=== PATIENT | male | born 1995 | race Caucasian/White ===

== ENCOUNTER 2020-06-24 13:02 | Emergency (ER) | payer SELFPAY ==
[2020-06-24] MEDS ORDERED: MEDROL DOSEPAK4 MG PO (15:04)
[2020-06-24 15:16] VITALS: BP 168/89
== END 2020-06-24 15:10 | disposition home or self-care (01) ==
LOC: ED 13:02
DX: M10.9 Gout, unspecified (principal); F17.220 Nicotine dependence, chewing tobacco, uncomplicated

== ENCOUNTER 2020-07-13 15:33 | Emergency (ER) | payer SELFPAY ==
[~2020-07-13 15:33] MED LIST: MEDROL DOSEPAK4 MG PO
[2020-07-13] MEDS ORDERED: IBU-200200 M1 PO (15:48)
[2020-07-13 16:49] LABS: BASO # 0.1 (0.02-0.10); EOS # 0.2 (0.04-0.40); EOS % 1.4 % (0.0-4.0); HEMATOCRIT 46.6 % (42.0-52.0); HEMOGLOBIN 15.4 g/dL (13.5-18.0); LYMPH# 2.7 (1.50-4.00); MEAN CELL VOLUME 90 fl (78-100); MEAN CORPUSCULAR HEMOGLOBIN 30 pg (27-31); MEAN CORPUSCULAR HGB CONC 33 g/dL (33-37); MEAN PLATELET VOLUME 8.3 fl (7.4-10.4); PLATELET COUNT 322 K/mm3 (130-400); WHITE BLOOD COUNT 13.9 K/mm3 (4.8-10.8)
[2020-07-13 17:01] LABS: MONO # 1.6 (0.20-0.80); NEU # 9.2 (1.40-6.50)
[2020-07-13 17:07] LABS: POTASSIUM 4.8 mmol/L (3.5-5.1)
[2020-07-13 17:08] LABS: CALCIUM 9.4 mg/dL (8.3-10.5)
[2020-07-13] MEDS ORDERED: PREDNISONE10 MG PO (17:41)
[2020-07-13 18:09] VITALS: BP 117/88
== END 2020-07-13 18:00 | disposition home or self-care (01) ==
LOC: ED 15:33
PROVIDERS: Nurse Practitioner Family
DX: M25.572 Pain in left ankle and joints of left foot (principal); M79.672 Pain in left foot; M10.9 Gout, unspecified; F17.290 Nicotine dependence, other tobacco product, uncomplicated
CPT/HCPCS: J1885

== ENCOUNTER → 2023-08-29 | Outpatient (CLI) | payer BC ==
[~2023-08-29] MED LIST changes: +IBU-200200 M1 PO; +PREDNISONE10 MG PO
== END ==
LOC: LAB 16:07
DX: M10.09 Idiopathic gout, multiple sites (principal)